=== PATIENT | female | born 1975 | race Caucasian/White ===

== ENCOUNTER 2017-04-06 11:52 | Day surgery (SDC) | payer OTHER ==
[~2017-04-06] VITALS: Ht 167.6 cm; Wt 106.6 kg
[~2017-04-06 11:52] MED LIST: ADIPEX-P37.5 MG PO; TRAMADOL HCL50 MG PO
[2017-04-06 12:26] VITALS: BP 140/76
[2017-04-06 13:15] LABS: INTERNAL CONTROL VALID? YES
[2017-04-06] MEDS ORDERED: NORCO 5/3251 TABLET PO (16:13)
[2017-04-06 17:15] VITALS: BP 122/73
[2017-04-06 18:30] VITALS: BP 118/72
== END 2017-04-06 18:55 | disposition home or self-care (01) ==
LOC: SDC
PROVIDERS: Surgery
PROC: 0HBU0ZX Excision of Left Breast, Open Approach, Diagnostic (ICD-10-PCS; principal; 2017-04-06)
DX: D24.2 Benign neoplasm of left breast (principal); F41.8 Other specified anxiety disorders; K21.9 Gastro-esophageal reflux disease without esophagitis; F17.210 Nicotine dependence, cigarettes, uncomplicated; Z80.3 Family history of malignant neoplasm of breast; Z82.49 Family history of ischemic heart disease and other diseases of the circulatory system; Z83.3 Family history of diabetes mellitus
CPT/HCPCS: 84703; 87070; 87075; 87205; 88305; J0131; J0330; J0690; J1100; J1170; J2250; J2405; J2765; J3010